=== PATIENT | female | born 1940 | race Caucasian/White ===

== ENCOUNTER 2023-09-23 18:38 | Emergency (ER) | payer MEDICARE ==
--- NOTE | 2023-09-23 19:34 | CT Report ---
PROCEDURE: Head WO INDICATIONS: fall, head injury TECHNIQUE: Noncontrast 4.5 mm thick angled axial sections acquired from the foramen magnum to the vertex. For r adiation dose reduction, the following was used: automated exposure control, adjustment of mA and/or kV according to patient size. COMPARISON: None FINDINGS: Image quality: Excellent. CSF spaces: Basal cisterns are patent. No extra-axial fluid collections. The ventricles are symmet le in size and shape. Brain: No intracranial bleeds or masses. There is cerebral volume loss for age, with resultant vent ricular and sulcal prominence. There are periventricular and deep white matter chronic small vessel ischemic changes. There is intracranial internal carotid artery atherosclerosis. Skull and face: Calvarium and visualized facial bones appear intact, without suspicious lesions. Sinuses: Visualized sinuses and mastoids are clear. IMPRESSION: No CT evidence of acute intracranial abnormalities. Age-related volume loss and mild white matter chr onic small vessel ischemic changes. No acute skull fracture. Reviewed by: Balbir Kramer MD on 09/23/2023 7:32 PM PST Approved by: Balbir Kramer MD on 09/23/2023 7:32 PM PST Station ID: [id number]
--- NOTE | 2023-09-23 19:47 | ED Physician Documentation ---
PD HPI HEAD INJURY - Stated complaint Stated Complaint: FELL/HIT HEAD - Chief complaint Chief Complaint: Trauma Hd/Nk - History obtained from History obtained from: Patient - Additional information Additional information: Patient is an 83-year-old female who hit her head at home today. She tripped and fell, landing on her buttock and hip, then her head slammed back into the corner of a dresser causing a hematoma. She states that she was dazed. Did not lose consciousness. Has been nauseated since the event. No vomiting. She is not on blood thinners. 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 OF MUSICOLOGY: Hysterectomy, Other HEENT: Tonsil/Adenoidectomy - Present Medications Home Medications: Ambulatory Orders Medication Instructions Recorded Confirmed Amlodipine Besylate [Norvasc] 10 mg PO DAILY 09/23/23 09/23/23 - Allergies Allergies/Adverse Reactions: Allergies Allergy/AdvReac Type Severity Reaction Status Date / Time No Known Drug Allergies Allergy Verified 09/23/23 18:42 - Social History Does the pt smoke?: No Smoking Status: Never smoker Does the pt drink ETOH?: No Does the pt have substance abuse?: No - Immunizations Immunizations are current?: Yes PD ED PE NORMAL - Vitals Vital signs reviewed: Yes - General General: Alert and oriented X 3, No acute distress - HEENT HEENT: PERRL, EOMI, Moist mucous membranes, Other (3 cm left posterior scalp hematoma. No palpable skull fractures) - Neck Neck: Supple, no meningeal sign, No bony TTP, Other (FROM without pain) - Cardiac Cardiac: RRR - Respiratory Respiratory: No respiratory distress, Clear bilaterally - Abdomen Abdomen: Soft, Non tender, Non distended - Back Back: No spinal TTP - Derm Derm: Warm and dry - Extremities Extremities: Normal ROM s pain - Neuro Neuro: Alert and oriented X 3, printer's devil 2-12 intact, No motor deficit, No sensory deficit, Normal speech Eye Opening: Spontaneous Motor: Obeys Commands Verbal: Oriented GCS Score: 15 - Psych Psych: Normal mood, Normal affect Results - Vitals Vitals: Vital Signs - 24 hr 09/23/23 09/23/23 18:42 19:50 Temperature 36.8 C Heart Rate 70 64 Respiratory 16 15 Rate Blood Pressure 160/70 H 144/72 H O2 Saturation 100 98 Oxygen O2 Source Room air - Rads (name of study) Head CT Relevant Findings:: Final report received, See rad report PD Medical Decision Making - ED course Complexity details: reviewed results, re-evaluated patient, considered differential, d/w patient ED course: 83-year-old female presents to the emergency department after a ground-level fall and a closed head injury. Negative head CT. Head CT was performed due to the location of the hematoma combined with her continued nausea and feeling "dazed". GCS 15. Head injury instructions given at bedside. No other acute injuries. Ambulating without difficulty. Patient counseled regarding signs and symptoms for which I believe and urgent re-evaluation would be necessary. Patient with good understanding of and agreement to plan and is comfortable going home at this time This document was made in part using voice recognition software. While efforts are made to proofread this document, sound alike and grammatical errors may occur. Departure - Departure Disposition: 01 Home, Self Care Clinical Impression: Closed head injury Qualifiers: Encounter type: initial encounter Qualified Code(s): S09.90XA - Unspecified injury of head, initial encounter Condition: Good Instructions: ED Head Injury Closed Follow-Up: ADDY EDGE DO [Primary Care Provider] - Comments: Your head CT does not show any evidence of skull fracture or bleeding inside the brain. The hematoma should go down on its own. Please follow-up with your doctor for further care. Please return if you worsen. Forms: PCP List Discharge Date/Time: 09/23/23 20:00
[2023-09-23 19:58] VITALS: BP 144/72; O2SAT 98
== END 2023-09-23 20:00 | disposition home or self-care (01) ==
LOC: ED 18:38
DX: S09.90XA Unspecified injury of head, initial encounter (principal); W01.198A Fall on same level from slipping, tripping and stumbling with subsequent striking against other object, initial encounter; I10 Essential (primary) hypertension
CPT/HCPCS: 99282; 99284